=== PATIENT | female | born 1985 | race Caucasian/White ===

== ENCOUNTER 2019-11-03 13:44 | Outpatient (CLI) | payer OTHER, SELFPAY ==
--- NOTE | ~2019-11-03 | US_ITS ---
EXAMINATION: US right upper quadrant DATE: 11/03/2019 14:16 INDICATION: Elevated liver function tests TECHNIQUE: Multiple grayscale and Doppler ultrasound images of the abdomen were obtained. COMPARISON: 06/20/2016 FINDINGS: The head and and body of the pancreas are normal. The pancreatic tail is obscured by bowel gas. The liver is normal with normal echogenicity and echotexture. No surface nodularity. Normal hepa topetal flow in the main portal vein. The gallbladder is normal with no abnormal wall thickening, per icholecystic fluid or stones. The normal common bile duct measures 2 mm. There was no sonographic Mur phy sign. IMPRESSION: 1. Normal sonographic study of the gallbladder. Reviewed, dictated and finalized at location A.
== END 2019-11-03 13:45 | disposition home or self-care (01) ==
PROVIDERS: PCP Family Medicine; Visit Provider Physician Assistant
DX: R94.5 Abnormal results of liver function studies (principal)
CPT/HCPCS: 76705

== ENCOUNTER → 2020-01-04 16:16 | Outpatient (CLI) | payer OTHER, SELFPAY ==
--- NOTE | ~2020-01-04 | XR_ITS ---
EXAMINATION: XR chest 2V DATE: 01/04/2020 16:27 INDICATION: Shortness of breath TECHNIQUE: Frontal and lateral views of the chest are obtained COMPARISON: None available FINDINGS: The lungs are free of acute opacities. There is no pleural effusion or pneumothorax. The ca rdiomediastinal silhouette is normal. The visualized bones and soft tissues are unremarkable. IMPRESSION: 1. No acute cardiopulmonary abnormality. Reviewed, dictated and finalized at location A.
== END ==
PROVIDERS: Visit Provider Physician Assistant
DX: R06.00 Dyspnea, unspecified (principal)
CPT/HCPCS: 71046

== ENCOUNTER → 2020-09-04 10:27 | Outpatient (CLI) | payer OTHER, SELFPAY ==
[2020-09-04 20:24] LABS: SARS-CoV-2 RNA PCR Negative
== END ==
PROVIDERS: PCP Physician Assistant; Visit Provider Physician Assistant
DX: R68.89 Other general symptoms and signs (principal); Z20.822 Contact with and (suspected) exposure to COVID-19
CPT/HCPCS: C9803; U0003; U0005

== ENCOUNTER → 2022-11-15 11:11 | Outpatient (CLI) | payer OTHER, SELFPAY ==
--- NOTE | ~2022-11-15 | XR_ITS ---
Clinical Indication: Bronchitis PA and lateral views of the chest: Comparison: 01/04/2020 Findings: The lungs are clear, without evidence of focal consolidation or pleural effusion. Cardiome diastinal silhouette is within normal limits. Bones and soft tissues are unremarkable. Impression: Normal chest. Reviewed, dictated and finalized at [facility]. Impression: Normal chest.
== END ==
PROVIDERS: PCP Family Medicine; Visit Provider Family Medicine
DX: J40 Bronchitis, not specified as acute or chronic (principal)
CPT/HCPCS: 71046

== ENCOUNTER 2023-10-16 00:40 | Day surgery (SDC) | payer BC, SELFPAY ==
[2023-10-08 10:48] VITALS: BMI 24.2
--- NOTE | 2023-10-08 10:55 | PC.NURSE ---
Report to the Outpatient Waiting Room, entrance under the green pavilion located off [facility], at time 1000 on date 10/16/23. Planned Procedure Time: 1200. Time changes happen often and if your time is changed the preop area will call you the afternoon before. - You and your visitor will be asked to self-screen and do not enter if you have any COVID symptoms. - A mask is optional within the hospital at this time. Patients may have clear liquids (water, carbonated beverages, clear teas, apple juice) until 3 hours prior to surgery with a maximum of 20 ounces. - No food from midnight until time of surgery Take the following medications with a SIP of water the morning of surgery: NONE DO NOT STOP ANY OF YOUR OTHER PRESCRIPTION MEDICATIONS PRIOR TO SURGERY ?EXCEPT THE FOLLOWING Medications to discontinue per physician: VITAMINS Date to take last dose: 10/12/23 Please no make-up, nail [place], hairspray, perfume, deodorant, or body powder the day of surgery. No jewelry (including any body piercings) or valuables the day of surgery, leave them at home. Please take a shower or bath the night before, or the morning of, surgery with an antibacterial soap. Wear comfortable, loose fitting clothing. - Jewelry must be removed prior to entering the operating room. Rings and piercings that are not removed may be cut off. - The hospital will not accept responsibility for valuables. - Please leave all valuables, including medications, at home the day of surgery. If you are going home after surgery, a licensed trencher driver must drive you home. - NO public transportation without another adult if you receive anesthesia. - We recommend that an adult stay with you for 24 hours following discharge. - We also recommend that you do not drive, make important decision, drink alcoholic beverages, or take any drugs that were not prescribed by your health care provider for at least 24 hours after your discharge time. Follow any additional instructions given to you from your surgeon. If you or anyone in your household have experienced Covid symptoms in the past week, please notify your surgeon or the nurse liaison at the phone number below for possible testing. Telephone instructions given to PT - ERICA and asked if any additional questions and then verbalized understanding. Patient advised to call surgeon office or pre surgery nurse liaison [phone] if any additional questions.
--- NOTE | 2023-10-15 12:45 | WPDANESEPPF ---
Anes - Initial Pre Proc Eval Procedure: Operation Date: 10/16/23 12:00 Proposed Procedures p Excision of Subcutaneous Mass Left Lower Back - Polo Lizarraga MD Date/Time: 10/15/23 12:45 Surgeon: Polo Lizarraga MD Pre Op Diagnosis: left lower back mass (4x4cm) Patient Data Age: 37 Gender: F Height: 1.68 m Weight: 68.05 kg Allergies Allergy/AdvReac Type Severity Reaction Status Date / Time No Known Allergies Allergy Verified 10/16/23 10:39 Home Medications Medication Instructions Recorded Confirmed Type prenat.vits,viji,prd-itrg-jlbjg 1 tablet PO DAILY 06/14/20 10/16/23 History lisdexamfetamine 20 mg capsule 20 mg PO DAILY #30 caps 09/22/20 10/16/23 Rx (Vyvanse) certolizumab pegol 400 mg/2 mL 400 mg subcut ONCE 09/25/23 10/16/23 History (200 mg/mL x2) subcutaneous syringe kit (Cimzia) Patient hx anesthesia problems: none Family hx anesthesia problems: none Results Review: All pre-operative results and documents have been reviewed as part of the pre-operative evaluation. [facility] Past Medical History Medical History (Updated 09/26/23 @ 10:34 by Leigha Cunha [facility]) ADD (attention deficit disorder) without hyperactivity Asthma Attention deficit disorder Essential tremor GERD (gastroesophageal reflux disease) Undifferentiated inflammatory polyarthritis Surgical History Surgical History History of tonsillectomy Family History Family History Sibling Family history of bipolar disorder Mother Familial primary pulmonary hypertension Family history of type 2 diabetes mellitus Family history of heart disease in male family member before age 55 Other Family history of attention deficit hyperactivity disorder (ADHD) Social History Social History Social History: Smoking status: Never smoker Second hand tobacco smoke exposure: No Alcohol intake: current Drinks per week: 3 Alcohol use details: occasionally Substance use: never Substance use type: does not use Living arrangements: with family Occupation/Education: occupation Gender identity (if verbalized by the patient): Female Sexual Orientation (if Verbalized by the Patient): Straight or Heterosexual Spiritual care concerns: No Anes - Eval Final PreProcedure Day of Procedure 10/15/23 12:45 Patient weight: normal Heart: regular rate and rhythm Lungs: clear to auscultation and normal air movement Airway: Mallampati scale class II Neurological: alert and oriented Last oral intake: >/= 8 hours ASA classification: II Emergent: no Anesthetic plan: proceed Anesthesia type and monitoring: general GIVS and standard monitoring Results Review: All pre-operative results and documents have been reviewed as part of the pre-operative evaluation. Informed Consent: The patient's anesthetic plan and its attendant risks and benefits were discussed with the patient/family/POA. Questions were solicited and answers provided to the satisfaction of the patient/family/POA.
[2023-10-16 10:24] VITALS: BP 138/98; PULSE 70; RESP 16; TEMP 36.7; O2SAT 100
[2023-10-16] MEDS: LACTATED RINGERS 1,000 ML 30 ML IV CONT (10:35)
--- NOTE | 2023-10-16 11:53 | WPDHPUPDATE1 ---
History and Physical Update Update Date/Time: 10/16/23 11:53 History and Physical has been reviewed, including an updated exam of the patient. There are NO changes in the patient's condition. Risks, benefits, and alternatives have been discussed and questions answered. Patient agrees to proceed with procedure.
[2023-10-16] MEDS: ceFAZolin 2 GM/D5W 50 ML 2 GM/50 ML BAG IVPB (12:05)
[2023-10-16] MEDS: BUPIVACAINE/EPINEPHRINE 0.5% 30 ML VIAL INFILTRATE (12:05)
[2023-10-16 13:19] VITALS: BP 127/74; PULSE 76; RESP 14; O2SAT 100
--- NOTE | 2023-10-16 13:27 | W.PM.PROC2 ---
Procedure Note - Detailed Date of Procedure 10/16/23 Pre-op Diagnosis left lower back mass (4x4cm) Post-op Diagnosis Other (12 cm left lower back mass) Procedure Performed Excision 12 cm left lower back mass Surgeon Polo Lizarraga MD Electrical Sign Wirer Jose Eduardo Navarro, [facility] Anesthesia General (G IV S) and Local Indications Patient noticed a subcutaneous mass just to the left of her spine in the lower, lumbar region, of her back. She has had some pain associated with this. This clinically appears to be a lipoma. She is taken to surgery now for excision. Findings The mass was much longer than wide. It did appear to be a lipoma. Its length was 12 cm. It is with was at most 2.5 cm. Description of Procedure The patient was checked in the preoperative holding area. I was able to frances, with her in the prone position, the area of the subcutaneous mass on her left lower back. She was then taken to surgery where anesthesia was introduced and she was placed in the prone position. The area of the subcutaneous mass was prepped and draped. I infiltrated local in transverse orientation. I then made an incision over the area of local anesthetic. We dissected below Kelly's fascia and found the subcutaneous mass. It appeared to be a lipoma. I carefully dissected the mass from the surrounding tissues and then placing some traction on it saw that it originated deep between the facets of the spine. I dissected down to the into the mass and carefully dissected it free. As mentioned above, it was only about 2.5 cm in width. I measured the length and this was 12 cm. I checked the area for any signs of bleeding. There was none. I checked for any additional areas of a subcutaneous mass or nodule. There was none. I infiltrated additional local into the deeper portions of the wound. I then closed Kelly's fascia with interrupted 4-0 Vicryl suture. Some subcuticular 4-0 Vicryl skin suture were used to approximate the skin. Finally a running 4-0 Monocryl skin suture was placed. The wound was dressed with Exofin surgical adhesive. The patient was awakened and taken to outpatient surgery step down area in good condition. Sponge and needle counts were correct x2. Estimated Blood Loss -5 Drains No Packing No Pathology Yes (Subcutaneous mass left lower back) Complications No immediate complications Condition Stable Disposition Same day [facility] Billing Surgery - Charge Forward: Surgery Billing (Excision 12 cm subcutaneous mass (lipoma) left lower back; CPT code 00097)
[2023-10-16 13:45] VITALS: BP 133/95; PULSE 73; RESP 14
== END 2023-10-16 14:15 | disposition home or self-care (01) ==
PROVIDERS: PCP Family Medicine; Visit Provider Surgery
PROC: (CPT 21931; principal; 2023-10-16 12:00)
DX: D17.1 Benign lipomatous neoplasm of skin and subcutaneous tissue of trunk (principal); F98.8 Other specified behavioral and emotional disorders with onset usually occurring in childhood and adolescence; J45.909 Unspecified asthma, uncomplicated; G25.0 Essential tremor; K21.9 Gastro-esophageal reflux disease without esophagitis; Z98.890 Other specified postprocedural states; Z82.49 Family history of ischemic heart disease and other diseases of the circulatory system
CPT/HCPCS: 21931; 88304; J0690; J1100; J2250; J2405; J3010; J7120

== ENCOUNTER 2024-03-31 13:28 | Outpatient (CLI) | payer BC, SELFPAY ==
--- NOTE | ~2024-03-31 | XR_ITS ---
XR chest 2V Ordering provider: Rc Diamond MD History: 38 years Female with . J45.909 - Unspecified asthma, uncomplicated . Comparison: November 15, 2022 FINDINGS: MEDIASTINUM: The cardiac silhouette is not enlarged. LUNGS: No infiltrates, effusions or pneumothorax. OTHER: No free air under the diaphragm. IMPRESSION: No acute cardiopulmonary pathology. Reviewed, dictated and finalized at location A.
== END 2024-03-31 13:29 | disposition home or self-care (01) ==
LOC: MICIMG 13:29
PROVIDERS: PCP Family Medicine; Visit Provider Family Medicine
DX: J45.909 Unspecified asthma, uncomplicated (principal)
CPT/HCPCS: 71046

== ENCOUNTER 2024-05-12 09:55 | Outpatient (CLI) | payer BC, SELFPAY ==
--- NOTE | 2024-05-12 10:04 | EST_ITS ---
Patient Info Name: Salima Young Age: 38 years : 1985 Gender: Female Ht: 66 in Wt: 165 lbs BSA: 1.88 m2 HR: 70 bpm BP: 131 / 92 mmHg Exam Date: 05/12/2024 10:27 AM Exam Location: Echo Lab Patient Status: Outpatient Admit Date: 05/12/2024 Staff Ordering Physician: Edison Champagne DO Attending Provider: DR. CHAMPAGNE Exercise Technologist: Alice Maldonado [facility] Exercise Physician: Edison Champagne DO Exam Type: CA stress test treadmill Study Info Indications R07.9 - Chest pain, unspecified A treadmill exercise stress test was performed. Summary 1. 1. Negative Bridger exercise stress test for ischemic ST changes by ECG criteria. 2. 2. Good functional capacity, achieving 9.8 METs of workload. 3. 3. Appropriate HR response to exercise. 4. 4. Appropriate HR recovery at 1 minute post exercise. 5. 5. No imaging with stress testing. 6. 6. Patient informed of the above results. Protocol: Bridger Stress ECG Details Stage: REST Duration (min): 1 min : 5 sec Speed (mph): 0.0 Grade (%): 0 HR (bpm): 70 SBP (mmHg): 131 DBP (mmHg): 92 METS: --- Stage: REST Duration (min): 10 min : 14 sec Speed (mph): 0.0 Grade (%): 0 HR (bpm): 84 SBP (mmHg): 131 DBP (mmHg): 92 METS: --- Stage: STAGE 1 Duration (min): 1 min : 0 sec Speed (mph): 1.7 Grade (%): 10 HR (bpm): 102 SBP (mmHg): 131 DBP (mmHg): 92 METS: --- Stage: STAGE 1 Duration (min): 2 min : 0 sec Speed (mph): 1.7 Grade (%): 10 HR (bpm): 114 SBP (mmHg): 131 DBP (mmHg): 92 METS: --- Stage: STAGE 1 Duration (min): 3 min : 0 sec Speed (mph): 1.7 Grade (%): 10 HR (bpm): 114 SBP (mmHg): 141 DBP (mmHg): 84 METS: --- Stage: STAGE 2 Duration (min): 1 min : 0 sec Speed (mph): 2.5 Grade (%): 12 HR (bpm): 132 SBP (mmHg): 141 DBP (mmHg): 84 METS: --- Stage: STAGE 2 Duration (min): 2 min : 0 sec Speed (mph): 2.5 Grade (%): 12 HR (bpm): 138 SBP (mmHg): 155 DBP (mmHg): 85 METS: --- Stage: STAGE 2 Duration (min): 3 min : 0 sec Speed (mph): 2.5 Grade (%): 12 HR (bpm): 144 SBP (mmHg): 155 DBP (mmHg): 85 METS: --- Stage: STAGE 3 Duration (min): 1 min : 0 sec Speed (mph): 3.4 Grade (%): 14 HR (bpm): 159 SBP (mmHg): 182 DBP (mmHg): 82 METS: --- Stage: STAGE 3 Duration (min): 1 min : 30 sec Speed (mph): 3.4 Grade (%): 14 HR (bpm): 166 SBP (mmHg): 182 DBP (mmHg): 82 METS: --- Stage: RECOVERY Duration (min): 0 min : 29 sec Speed (mph): 0.0 Grade (%): 0 HR (bpm): 159 SBP (mmHg): 182 DBP (mmHg): 82 METS: --- Stage: RECOVERY Duration (min): 1 min : 29 sec Speed (mph): 0.0 Grade (%): 0 HR (bpm): 117 SBP (mmHg): 182 DBP (mmHg): 82 METS: --- Stage: RECOVERY Duration (min): 2 min : 29 sec Speed (mph): 0.0 Grade (%): 0 HR (bpm): 93 SBP (mmHg): 182 DBP (mmHg): 82 METS: --- Stage: RECOVERY Duration (min): 3 min : 4 sec Speed (mph): 0.0 Grade (%): 0 HR (bpm): 96 SBP (mmHg): 150 DBP (mmHg): 87 METS: --- Rest HR: 84 bpm Peak HR: 167 bpm Rest Sys BP: 131 mmHg Peak Sys BP: 182 mmHg Max Pred HR: 181 bpm % Max Pred HR: 92 % Target HR: 154 bpm Max RPP: 30,394 bpm*mmHg Espinoza Score: -2 Termination Reason: Reached target heart rate or workload Cardiac Symptoms: Shortness of breath Max ST Seg Deviation: -1.80 mm Total Time: 7 min : 30 sec Rest Duncan BP: 92 mmHg Peak Duncan BP: 82 mmHg Angina Score: None Total METS: 9.8 Resting ECG Sinus rhythm. Stress ECG No ST changes. Arrhythmias None. Report Signatures
== END 2024-05-12 09:56 | disposition home or self-care (01) ==
LOC: ANHCARD 09:56
PROVIDERS: PCP Family Medicine; Visit Provider Internal Medicine Cardiovascular Disease
DX: R07.9 Chest pain, unspecified (principal)
CPT/HCPCS: 93017

== ENCOUNTER 2025-04-20 14:48 | Outpatient (CLI) | payer BC, SELFPAY ==
--- OUTSIDE RECORDS SUMMARY | 2017-09-11 09:15 | XMS_ITS | Continuity of Care Document ---
Author Organization [facility] Address [address] [facility] [address] [place] [address] Phone Care Team Providers Care Digital Tech Name Role Phone Yuri Sotelo MD Unavailable Unavailable Allergies, Adverse Reactions, Alerts Substance Reaction Status Criticality No Known Allergies Active No Inform ation Medications Medication Instructions Dosage Effective Dates (start - stop) Status Comments Vyvanse 20 mg capsule take 2 capsule by oral route every day in the morning 40 MG - Active Lexapro 5 mg tablet take 1 tablet by ora l route every day 5 MG - Active Procedures Procedure Date OFFICE/OUTPATIENT VISIT [facility] Advance Directives Directive Yes / No Effective Date File Name No Information Encounters Encounter Description Practice Location Reason(s) For Visit Diagnoses Date Provider Providers Copied on Encounter [facility], [address] [place] [address], [address], tel:[phone] [facility] No Information 8 Deepak Welch. [address] [place], [place], [id number] . tel:[phone] OFFICE/OUTPAT IENT VISIT [facility], [address] [place] [address] [address], [place], [address], [place] tel:[phone] [facility] Amy Instability of left shoulder joint 8 Zachary Downey. [address], [place], [place], [id number] , [place]. tel:[phone] Referring Provider: [address], [place], [address] . tel:[phone] Family History Family Member Type Diagnosis Age At Onset Sister Problem (finding) Alive and well Payers Payer name Insurance type Covered alliance party ID Gabo jain(s) [facility] Choice/Choice Plus E2 [id number] Social History Type Description Quantity Date Captured Comments Alcohol Use Details Unknown Caffeine Use Details Unknown Tobacco Use Status No Information Smoking Status No Information Sex Female Chief Complaint And Reason For Visit No Information Reason For Referral Reason For Referral No Information Plan Of Treatment Date Type Action Status Referral Ordered: RADEX SERGIO COMPL MINIMUM 2 VIEWS LT ordered History Of Present Illness Encounter Date Complaint History Of Prese nt Illness No Information Functional Status Date Functional Assessmen t No Information Instructions Date Instruction Additional Infor mation apply heating pad or ice as tole rated Related to Instability of left shoulder joint elevate higher than your heart R elated to Instability of left shoulder joint Assessments Type Assessment Date No Information Patient Care Teams Name Effective Dates (start - stop) Status Members No Information
--- NOTE | ~2025-04-20 | MM_ITS ---
EXAMINATION: MM screening martir BI w jimena HISTORY: Screening TECHNIQUE: Craniocaudal and mediolateral oblique 3-D tomosynthesis images were obtained and synthetic 2-D images were generated. CAD analysis was submitted and interpreted. COMPARISON: Baseline BREAST PARENCHYMAL COMPOSITION: There are scattered areas of fibroglandular density. FINDINGS: There is no evidence of suspicious mass, calcification, or architectural distortion to suggest malignancy in either breast. IMPRESSION: 1. No mammographic evidence of malignancy. 2. Recommend routine screening mammography in one year. BI-RADS Category 1: Negative Reviewed, dictated and finalized at location B. MACHINE OPERATOR
--- OUTSIDE RECORDS SUMMARY | 2025-04-21 14:29 | XMS_ITS | Clinical Summary ---
Author Organization [facility] Address [address] [place] [address] Care Team Providers Care Oracle Hrms Developer Name Role Phone Keri Dorantes MD Unavailable Senia Silver MD Unavailable [phone] Senia Silver MD Primary Care Provider Source Comments [facility],non-owned Affiliates and Associated Physician Practices is amultiple site organization consisting of ambulatory clinics and hospital sitesin [place] and [place]. This disclosure is being madepursuant to the Care Everywhere program and may not contain all information available regarding this patient. Last updated 18.[facility] [employer] Allergies No known active allergies Medications * Be aware that medications may not be up to date on this document. Alwaysverify current medications with the patient. certolizumab pegol (Cimzia) injection Inject 400 (four hundred) mg subcutaneously every 28 days Active ALBUTEROL IN Inhale 90 mcg by mouth as needed Active lisdexamfetami ne (Vyvanse) 30 MG capsule Take 1 (one) capsule by mouth every morning Active MV & Min w/FA-DHA ( ADULT GUMMY/DHA/FA PO) Take 4 Pieces of gum by mouth once daily Active Family History Medical History Relation Name Comments Hypertension Brother Hypertension Father Hypertension Maternal Grandfather Congenital Heart defect Maternal Uncle CAD (Coronary Artery Disease) Mother Diabetes - Type 2 Mother Other - Pulmonary/Lung Mother pulmo nary fibrosis Down's Syndrome Other Sister in law Diabetes - Gestational Sister Diabetes - Type 2 Sister Relation Name Status Comments Brother Father Alive Maternal Grandfather Maternal Uncle Alive Mother Other Sister in law Alive Sister Social History Tobacco Use Types Packs/Day Years Used Date Smoking Tobacco: Never Smokeless Tobacco: Never Tobacco Cessation:Counseling Given: Not Answered Alcohol Use Standard Drinks/Week Comments Yes 2 (1 standard drink = 0.6 oz pur e alcohol) socially Education Answer Date Recorded What is the highest level of school you have completed or the highest degree you have received? 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 Not on file Not on file Not on fi le Last Filed Vital Signs Vital Sign Reading Time Taken Comments Blood Pressure 126/84 12/11/2022 11:01 AM CDT Pulse 80 12/11/2022 11:01 AM CDT Temperature - - Respiratory Rate - - Oxygen Saturation - - Inhaled Oxygen Concentration - - Weight 71.7 kg (158 lb) 12/11/2022 11:01 AM CDT Height 167.6 cm (5' 6) 12/11/2022 11:01 AM CDT Body Mass Index 25.5 12/11/2022 11:01 AM CDT Plan of Treatment Health Maintenance Due Date Last Done Comments LIPID TESTING 1985 MAMMOGRAM 1985 HIV SCREENING 11/15/1999 HEPATITIS C SCREENING 11/10/2002 DTAP/TDAP/TD VACCINES (1 - Tdap) 11/15/2003 HEPATITIS B VACCINE (1 of 3 - 19+ 3-dose series) 11/15/2003 HPV VACCINE (1 - 3-dose SCDM series) 11/15/2011 DEPRESSION SCREENING 06/16/2024 COVID-19 VACCINE (4 - 2024-2 6 season) 2025 04/08/2022, 05/15/2021, 08/24/2020 INFLUENZA VACCINE (#1) 2025 , 03/11/2020, 03/09/2019 PAP SMEAR 07/12/2025 07/12/2022, 07/12/2022, 07/12/2022 (Done Outside Per Report) ZOSTER VACCINE (1 of 2) 2034 HIB VACCINE Aged Out No longer eligi ble based on patient's age to complete this topic MENINGOCOCCAL (Group B) VACCINE SHARED DECISION-MAKING Aged Out No longer eligible based on patient's age to complete this topic MENINGOCOCCAL GROUPS A/C/Y/W VACCINE Aged Out No longer eligible based on patient's age to complete this topic PNEUMOCOCCAL VACCINE Aged Out No long er eligible based on patient's age to complete this topic Insurance * Guarantor: ERICA YOUNG Account Type Relation to Patient Date of Phone Billing Address Personal/Family [address] [place] [address] SELF PAY NO INSURANCE Member Subscriber Plan / Payer (Ef fective for All Dates) Name:Erica Young Member ID:Not on file Relation to Subscriber:Not on file Name:ERICA OYUNG Subscriber ID:Not on file Address: [address] [place] [address] Payer ID:Not on file Group ID:Not on file Type:Self Pay Address: [place], [place] * Guarantor: REICA YOUNG Account Type Relation to Patient Date of Phone Billing Address Personal/Family [address] [place] [address] SELF PAY NO INSURANCE Member Subscriber Plan / Payer (Ef fective for All Dates) Name:Erica Young Member ID:Not on file Relation to Subscriber:Not on file Name:ERICA YOUNG Subscriber ID:Not on file Address: [address] [place] [address] Payer ID:Not on file Group ID:Not on file Type:Self Pay Address: [place], [place] * Guarantor: ERICA YOUNG Account Type Relation to Patient Date of Phone Billing Address Personal/Family [address] [place] [address] SELF PAY NO INSURANCE Member Subscriber Plan / Payer (Ef fective for All Dates) Name:Erica Young Member ID:Not on file Relation to Subscriber:Not on file Name:ERICA YOUNG Subscriber ID:Not on file Address: [address] [place] [address] Payer ID:Not on file Group ID:Not on file Type:Self Pay Address: [facility] [place] Care Teams Oracle Hrms Developer Relationship Specialty Start Date End Date Senia Silver MD [address] [place] [address] PCP - General Family Medicine 12/11/22 Keri Dorantes MD Referring Physician Obstetrics and Gynecology 12/10/22 Senia Silver MD [address] [place] [id number] Primary Care Provider Family Medicine 12/10/22
--- OUTSIDE RECORDS SUMMARY | 2025-04-21 14:29 | XMS_ITS | Clinical Summary ---
Author Organization [facility] Address [address] [place] [address] Phone Care Team Providers Care Corporate Manager Name Role Phone Chetan SENA MD, Benoit Jackson Primary Care Provider [phone] Allergies No known active allergies Medications albuterol HFA 90 mcg inhaler Take by inhalation. Active cholecalciferol , vitamin D3, 5,000 unit Take 5,000 Units by mouth. Active Cyanocobalamin (VITAMIN B-12) 1,000 mcg Tablet, Sublingual Take 5,000 mcg by mouth. Active lisdexamfetamin e (VYVANSE) 30 mg capsule Take 30 mg by mouth. Active nitrofurantoin (MACROBID) 100 mg capsule Take one tablet after intercourse for UTI prophylaxis. Active triamcinolone acetonide (KENALOG) 0.1 % Ointment Apply to affected area. Active raNITIdine (ZANTAC) 150 mg tablet Take 150 mg by mouth. Active pantoprazole (PROTONIX) 20 mg Tablet, Delayed Release (E.C.) Take 20 mg by mouth. Active Active Problems No known active problems Social History Tobacco Use Types Packs/Day Years Used Date Smoking Tobacco: Never Comments Unknown Sex and Gender Information Value Date Recorded Sex Assigned at Not on file Legal Sex Female 11:23 AM CDT Gender Identity Not on file Sexual Orientation Not on file Last Filed Vital Signs Vital Sign Reading Time Taken Comments Blood Pressure - - Pulse - - Temperature - - Respiratory Rate - - Oxygen Saturation - - Inhaled Oxygen Concentration - - Weight 62.1 kg (137 lb) 10/08/2018 8:26 AM CDT Height 167.6 cm (5' 6) 09/11/2018 1:52 PM CDT Body Mass Index 22.11 09/11/2018 1:52 PM CDT Plan of Treatment Health Maintenance Due Date Last Done Comments DTAP/TDAP/TD VACCINES (1 - Tdap) 11/15/2003 HEPATITIS B VACCINES (1 of 3 - 19+ 3-dose series) 06/2003 HPV/Cotest (21-29) 2005 HPV VACCINES (1 - 3-dose SCDM series) 11/15/2011 CERVICAL CANCER SCREENING 2014 HPV/Cotest (30-65) 2014 PAP SMEAR 2014 BREAST CANCER SCREENING 2024 INFLUENZA VACCINE (#1) 2025 Insurance [facility] [employer] PPO [id number] [facility] Address: [facility] [id number] [place] [address] Care Teams Corporate Manager Relationship Specialty Start Date End Date Benoit Benton III, MD [address] [place] [address] PCP - General Rheumatology 09/11/18
--- OUTSIDE RECORDS SUMMARY | 2025-04-21 14:29 | XMS_ITS | Data Portability ---
Author Organization [facility]/[employer]/[facility] (11) Address [address] [place] [address] Care Team Providers Care Public Events Facilities Rental Manager Name Role Phone BE HURTADO Referring Provider [phone] Assessment No assessment recorded. Plan of Treatment Reminders Order Date Submit Date Provider Last Modified By Organization Details Last Modified Time Details Appointments None record ed. Lab None record ed. Referral None record ed. Procedures None record ed. Surgeries None record ed. Imaging None record ed. Medication Orders None record ed. Patient TargetsNo targets recorded. Patient InstructionsNo instructions recorded. Reason for Referral None Reported. Procedures Surgical History Date Name Laterality Status Provider Name and Address Organization Details Recorded Time 02/04/2018 Sleep Study completed Be Hurtado MD, F.C.C.P. [address] [place] [address], [place], [address], [facility] [employer] 02/05/2018 18:33:12 Imaging Results None recorded. Procedure Notes None recorded. Medical Equipment None Reported. Medications Name Sig Start Date Stop Date Status Note LastModified by Organization Details LastModified Time prednisone 10 mg tablet active Not Available Not Available No t Available pantoprazole 40 mg tablet,delayed release active Not Available Not Available Not Available hydrocodone 10 mg-chlorphenir amine 8 mg/5 mL oral susp extend.rel 12hr active Not Available Not Available Not Available propranolol 20 mg tablet active Not Available Not Available No t Available amoxicillin 875 mg-potassium clavulanate 125 mg tablet active Not Available Not Availabl e Not Available escitalopram 10 mg tablet active Not Available Not Available Not Available escitalopram 5 mg tablet active Not Available Not Available No t Available Flovent HFA 220 mcg/actuation aerosol inhaler active Not Available Not Available Not Available Vyvanse 20 mg capsule active Not Available Not Available Not Available Dulera 200 mcg-5 mcg/actuation HFA aerosol inhaler active Not Available Not Available Not Available Mary Grace 1/20 (21) 1 mg-20 mcg tablet active Not Available Not Available N ot Available Mary Grace 1.5/30 (21) 1.5 mg-30 mcg tablet active Not Available Not Available N ot Available Arnuity Ellipta 200 mcg/actuation powder for inhalation active Not Available Not Available N ot Available Vitals Date Recorded Body height Body mass index (BMI) Body weight Provider Name and Address Organization Details Last Updated DateTime 02/04/2018 167.64 cm 21.3 kg/m2 67785.19 g Elia Vogt [place] - [facility] 02/04/2018 17:07:22 Social History None recorded. Functional Status None recorded. Mental Status None recorded. Family History Nothing Reported. Medical History No medical history recorded. Gynecological HistoryNo gynecological history recorded. Obstetrics History GPAL:G 0 P 0 0 0 0 Past Encounters Encounter ID Performer Location Encounter Start Date Encounter Closed Date Diagnosis/Indication Diagnosis SNOMED-CT Code Diagnosis ICD10 Code Diagnosis IMO Codes Diagnosis Note [id number] [place], [facility] (90) [address] [facility] [address] [place] [address] 02/04/2018 16:25:45 02/05/2018 13:46:34 Obstructive sleep apnea of adult 1271738459 103 G47.33 Health Concerns Section Related Observation LastModified by Organization Detai ls LastModified Time None Recorded Concern Status LastModified by Organization Details LastModified Time None Recorded Advance Directives Directive None Recorded Payers Insurance Date Sequence Insurance Name Policy Number Policy Schwarz Covered Member ID Schwarz Member ID Guarantor Name 02/10/2018 1 [facility] [id number] Salima Young [id number] Salima Young Notes Date Note Type Note Provider Name and Address Organization Details Recorded Time 8 text/html HST SetupReported by PatientEquipment InstructionsFor hst set up, patient reportsdemonstrated to patient how to set up home sleep test device. the patient was able to return demonstration with out difficulty.,the patient is returning the device the following morning., andthe patient is wearing hst with oral appliance.. Be Hurtado MD, F.C.C.P. [address] [address], [place], [address], [facility] 02/05/2018 18:33:15 OBGyn Episode No OBEpisode recorded.
--- OUTSIDE RECORDS SUMMARY | 2025-04-21 14:29 | XMS_ITS | Encounter Summary ---
Author Organization [facility] Address [address] [place] [address] Phone Care Team Providers Care Television Analyzer Name Role Phone Miscellaneous, Not In File Unavailable Unava ilable Lexie Holcomb MD Primary Care Provider Chetan SENA MD, John JSusan Unavailable [phone] Kami Talley MD Primary Care Provider [phone] Lexie Holcomb MD Primary Care Provider Senia Silver MD Primary Care Provider + Orion Ortega MD Unavailable [phone] Rc Diamond MD Primary Care Provider [phone] Encounter Details Date Type Department Care Team (Late st Contact Info) Description 09/05/2017 Orders Only [facility] ProviderAlexandre MD [address] [place] [id number] Social History Tobacco Use Types Packs/Day Years Used Date Smoking Tobacco: Never Assessed Comments Unknown Sex and Gender Information Value Date Recorded Sex Assigned at Not on file Legal Sex Female 11:16 AM [employer] Gender Identity Female 01/22/2021 1:07 PM CDT Sexual Orientation Straight 01/22/2021 1: 07 PM CDT documented as of this encounter Functional Status documented as of this encounter Plan of Treatment Not on file documented as of this encounter Procedures Procedure Name Priority Date/Time Associated Diagnosis Comments DISCHARGE LABORATORY CUMULATIVE REPORT 09/05/2017 12:00 AM CDT documented in this encounter Results * DISCHARGE LABORATORY CUMULATIVE REPORT (09/05/2017 12:00 AM CDT) Narrative 09/05/2017 12:00 AM CDT Ordered by an unspecified provider. us Historical Provider LAB BLOOD ORDERABLES Kate l Result documented in this encounter Visit Diagnoses Not on filedocumented in this encounter Care Teams Television Analyzer Relationship Specialty Start Date End Date Lexie Holcomb MD [address] [facility] [address] [facility] [address] [place] [address] PCP - General 04/05/17 02/15/19 Kami Talley MD [address] [place] [address] [address] [facility] [address] [place] [address] PCP - General Family Medicine 02/16/19 08/01/19 Lexie Holcomb MD [address] [place] [address] [address] [facility] [address] [place] [address] PCP - General Family Medicine 08/02/19 11/07/21 Senia Silver MD [address] [place] [address] [facility] [address] [place] [address] PCP - General Family Medicine 11/08/21 05/02/24 Rc Diamond MD [address] [facility] [address] [facility] [address] [place] [address] PCP - General Family Practice 05/03/24 Miscellaneous, Not In File 10/16/16 9 Benoit Benton III, MD [address] [place] [address] Consulting Physician Rheumatology 08/04/17 02/15/19 Orion Ortega MD [address] [place] [address] Consulting Physician Rheumatology 10/27/23 documented as of this encounter
--- OUTSIDE RECORDS SUMMARY | 2025-04-21 14:29 | XMS_ITS | Clinical Summary ---
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 Active Flovent HFA 110 mcg/actuation inhaler 02/19/2021 Active certolizumab pegol (Cimzia) 400 mg (200 mg x 2) kit INJECT 2 SYRINGES UNDER THE SKIN EVERY 4 WEEKS 2 each 2 10/25/2024 Active metFORMIN (GLUCOPHAGE) 500 mg tablet Take 1 tablet (500 mg total) by mouth daily 12/20/2024 Active Active Problems Problem Noted Date Diagnosed Date Pain of left hip 10/27/2023 Assessment & Plan (10/27/2023 4:39 PM CDT): Has episodic sharp pains affecting the left hip/groin upon standing after sitting for prolonged periods. Symptoms lasts for few seconds and resolve. Her symptoms discussed above along with history of hypermobility, raise concern for possible labral tear. Recommended x-ray and PT, if symptoms persist. If symptoms do not improve, would consider an MRI at that point. Hypercalcemia 02/22/2022 Assessment & Plan (10/27/2023 4:37 PM CDT): Previous labs showed mild hypercalcemia along with elevations in ionized calcium. Has been following with PCP. Will recheck calcium, ionized calcium, and PTH. Continue to monitor with PCP. Assessment & Plan (05/27/2022 10:22 AM MAGNET PLACER): Prior labs have shown mild hypercalcemia along with mild elevations in ionized calcium. Will recheck labs today. Have recommended further discussion with PCP. Assessment & Plan (02/22/2022 4:11 PM CDT): Previous labs display mild hypercalcemia. Will check ionized calcium. Rash 07/06/2021 Assessment & Plan (07/06/2021 9:37 AM MAGNET PLACER): Slightly raised plaques with scale and ill-defined borders over the bilateral arms (L>R) primarily over the flexor. Appears exam it is. Recommended OTC hydrocortisone cream and further evaluation with Dermatology. Follow-up 4 weeks. Sooner if needed. Seen with Dr. Benton. care following vaginal delivery 03/09 Overview (03/11/2021): # ID: Afebrile. No signs/symptoms of infection. #PPROM @ 29w5d: no signs of chorioamnionitis. s/p latency abx w/ amp/azithro x 48hrs => amox/azithro x 5 days (02/28-03/06, 7 day course) #HSV: s/p suppression and negative BLE x 2 since admission #COVID-19: Preadmission testing negative # Heme: EBL 400mL. No symptoms acute blood loss anemia. # CV/Pulm: Vital signs stable, within normal limits. # GI/: Tolerating PO. Voiding spontaneously. # Pain: Controlled with above regimen. # Hx essential tremor: on no meds # Hx of ADHD: on no meds # Psoriatic arthritis: Not currently on any meds, has previously been on sulfasalazine and humira. Asymptomatic. Followed by rheum. # Post DVT prophylaxis: The patient has the following MAJOR risk factors prolonged labor OR antepartum admission >72h immediately prior to delivery and the following MINOR risk factors age >/= 35. enoxaparin 40 mg daily ordered for VTE prophylaxis. # MOC: Condoms and withdrawal method # MOF: Both formula and # COVID Vaccination Status: Previously received # Disposition: Follow up task not sent. Continue routine care. Plan for discharge to home today. Supervision of other normal , antepartu m 09/26/2020 Overview (02/20/2021): -AMA -Hx of ADHD: No meds currently. -Hx of Essential tremors: No meds currently. -Hx of HSV: Needs suppression. -Hep C Ab needed in 3rd tri labs [x] Labs: Labs: Lab Results Component Value Date ABORH O Positive 10/02/2020 IDCOOMB Negative 10/02/2020 [id number] Nonreactive 10/02/2020 LABRPR Nonreactive 10/02/2020 RUBELIGG Reactive 10/02/2020 HEPBSAG Nonreactive 10/02/2020 [x] Genetic Screening: nml cfDNA (FOB sibling h/o Tri 21), nml invitae [x] Baby ASA: yes @ 12wks [x] 1hr GCT at 24-28wks: nml, 136 [x] Tdap (27-36wks): 02/20/2021 TH [] Flu Shot: [] Rhogam (if Rh neg): n/a O+ [] GBS at 36 wks: [x] [] control method: [] 39 weeks discussion of IOL vs. Expectant management: [] Mode of delivery: [] For C/S bottle of CHG 4% and hand out provided @ 36wks Boy, NO circ, , undecided on peds Teaching: [x] 1st visit [x] 28-30 week [] 36 week Elevated liver enzymes 12/21/2019 Assessment & Plan (12/21/2019 11:22 AM CDT): Liver US 11/2019: WNL May need further evaluation with hepatology, although should discuss further with pcp. Acrocyanosis 08/05/2018 Assessment & Plan (08/05/2018 3:36 PM MAGNET PLACER): Purple discoloration of the toes in the cold, which is present on exam today. Advised to keep feet warm with socks and shoes. Encounter for long-term (current) use of medicat ions 08/05/2018 Assessment & Plan (02/03/2025 10:22 AM CDT): Routine labs today. Side effects to Plaquenil (confusion, dizziness, vision changes) No plans for pregnancies, on bc, although will defer mtx and arava due to child bearing age Elevated lfts with ssz, humira Assessment & Plan (10/25/2024 8:53 AM CDT): Routine labs today. Side effects to Plaquenil (confusion, dizziness, vision changes) No plans for pregnancies, on bc, although will defer mtx and arava due to child bearing age Elevated lfts with ssz, humira Assessment & Plan (07/26/2024 9:10 AM MAGNET PLACER): Routine labs today. Side effects to Plaquenil (confusion, dizziness, vision changes) No plans for pregnancies, on bc, although will defer mtx and arava due to child bearing age Elevated lfts with ssz, humira Assessment & Plan (05/03/2024 9:10 AM MAGNET PLACER): Routine labs today. Side effects to Plaquenil (confusion, dizziness, vision changes) No plans for pregnancies, on bc, although will defer mtx and arava due to child bearing age Elevated lfts with ssz, humira Assessment & Plan (02/02/2024 10:17 AM CDT): Routine labs today. Side effects to Plaquenil (confusion, dizziness, vision changes) No plans for pregnancies, on bc, although will defer mtx and arava due to child bearing age Elevated lfts with ssz, humira Assessment & Plan (10/27/2023 4:37 PM CDT): Routine labs today. Side effects to Plaquenil (confusion, dizziness, vision changes) No plans for pregnancies, on bc, although will defer mtx and arava due to child bearing age Elevated lfts with ssz, humira Assessment & Plan (07/28/2023 4:28 PM MAGNET PLACER): Routine labs today. Side effects to Plaquenil (confusion, dizziness, vision changes) No plans for pregnancies, on bc, although will defer mtx and arava due to child bearing age Elevated lfts with ssz, humira Assessment & Plan (03/12/2023 3:53 PM CDT): Routine labs today. Side effects to Plaquenil (confusion, dizziness, vision changes) No plans for pregnancies, on bc, although will defer mtx and arava due to child bearing age Elevated lfts with ssz, humira Assessment & Plan (12/10/2022 3:53 PM CDT): Routine labs today. Side effects to Plaquenil (confusion, dizziness, vision changes) No plans for pregnancies, on bc, although will defer mtx and arava due to child bearing age Elevated lfts with ssz, humira Assessment & Plan (09/09/2022 4:18 PM CDT): Routine labs today. Side effects to Plaquenil (confusion, dizziness, vision changes) No plans for pregnancies, on bc, although will defer mtx and arava due to child bearing age Elevated lfts with ssz, humira Assessment & Plan (05/27/2022 10:22 AM MAGNET PLACER): Routine labs today. Side effects to Plaquenil (confusion, dizziness, vision changes) No plans for pregnancies, on bc, although will defer mtx and arava due to child bearing age Elevated lfts with ssz, humira Assessment & Plan (02/22/2022 4:11 PM CDT): Routine labs today. Side effects to Plaquenil (confusion, dizziness, vision changes) No plans for pregnancies, on bc, although will defer mtx and arava due to child bearing age Elevated lfts with ssz, humira Assessment & Plan (01/11/2022 3:13 PM CDT): Routine labs today. Side effects to Plaquenil (confusion, dizziness, vision changes) No plans for pregnancies, on bc, although will defer mtx and arava due to child bearing age Elevated lfts with ssz, humira Assessment & Plan (11/08/2021 4:10 PM CDT): Routine labs today. Side effects to Plaquenil (confusion, dizziness, vision changes) No plans for pregnancies, on bc, although will defer mtx and arava due to child bearing age Elevated lfts with ssz, humira Assessment & Plan (08/07/2021 9:14 AM MAGNET PLACER): Routine labs today. Side effects to Plaquenil (confusion, dizziness, vision changes) No plans for pregnancies, on bc, although will defer mtx and arava due to child bearing age Elevated lfts with ssz, humira Assessment & Plan (07/06/2021 9:37 AM MAGNET PLACER): Routine labs today. Side effects to Plaquenil (confusion, dizziness, vision changes) No plans for pregnancies, on bc, although will defer mtx and arava due to child bearing age Elevated lfts with ssz, humira Given her concerns with milk production and weight gain, will check thyroid studies. Assessment & Plan (06/12/2021 12:34 PM MAGNET PLACER): Routine labs today. Side effects to Plaquenil (confusion, dizziness, vision changes) No plans for pregnancies, on bc, although will defer mtx and arava due to child bearing age Elevated lfts with ssz, humira Given her concerns with milk production and weight gain, will check thyroid studies. Assessment & Plan (04/17/2021 4:41 PM CDT): Routine labs today. Side effects to Plaquenil (confusion, dizziness, vision changes) No plans for pregnancies, on bc, although will defer mtx and arava due to child bearing age Elevated lfts with ssz, humira Assessment & Plan (01/30/2021 3:46 PM CDT): Routine labs today. Side effects to Plaquenil (confusion, dizziness, vision changes) No plans for pregnancies, on bc, although will defer mtx and arava due to child bearing age Elevated lfts with ssz, humira Assessment & Plan (10/25/2020 3:55 PM CDT): Routine labs today. Side effects to Plaquenil (confusion, dizziness, vision changes) No plans for pregnancies, on bc, although will defer mtx and arava due to child bearing age Elevated lfts with ssz, humira Assessment & Plan (04/21/2020 10:35 AM MAGNET PLACER): Routine labs today. Side effects to Plaquenil (confusion, dizziness, vision changes) No plans for pregnancies, on bc, although will defer mtx and arava due to child bearing age Elevated lfts with ssz, humira Assessment & Plan (03/15/2020 12:52 PM CDT): Routine labs today. Side effects to Plaquenil (confusion, dizziness, vision changes) No plans for pregnancies, on bc, although will defer mtx and arava due to child bearing age Elevated lfts with ssz, humira Assessment & Plan (01/12/2020 10:21 AM CDT): Routine labs today. Side effects to Plaquenil (confusion, dizziness, vision changes) No plans for pregnancies, on bc, although will defer mtx and arava due to child bearing age Elevated lfts with ssz, humira Assessment & Plan (12/21/2019 11:23 AM CDT): Routine labs today. Side effects to Plaquenil (confusion, dizziness, vision changes) No plans for pregnancies, on bc, although will defer mtx and arava due to child bearing age Elevated lfts with ssz, humira Assessment & Plan (11/10/2019 12:52 PM CDT): Routine labs today. Side effects to Plaquenil (confusion, dizziness, vision changes) No plans for pregnancies, on bc, although will defer mtx and arava due to child bearing age Elevated lfts with ssz Assessment & Plan (09/29/2019 10:15 AM CDT): Routine labs today. Side effects to Plaquenil (confusion, dizziness, vision changes) No plans for pregnancies, on bc, although will defer mtx and arava due to child bearing age Elevated lfts with ssz Assessment & Plan (07/29/2019 10:08 AM MAGNET PLACER): Routine labs today. Side effects to Plaquenil (confusion, dizziness, vision changes) No plans for pregnancies, on bc, although will defer mtx and arava due to child bearing age Assessment & Plan (04/28/2019 1:23 PM MAGNET PLACER): Routine labs today. Side effects to Plaquenil (confusion, dizziness, vision changes) No plans for pregnancies, on bc, although will defer mtx and arava due to child bearing age Assessment & Plan (03/25/2019 9:27 AM CDT): Routine labs today. Side effects to Plaquenil (confusion, dizziness, vision changes) No plans for pregnancies, on bc, although will defer mtx and arava due to child bearing age Assessment & Plan (02/23/2019 9:13 AM CDT): Routine labs today. Side effects to Plaquenil (confusion, dizziness, vision changes) No plans for pregnancies, on bc, although will defer mtx and arava due to child bearing age Assessment & Plan (09/23/2018 3:36 PM CDT): Routine labs today. Side effects to Plaquenil (confusion, dizziness, vision changes) Assessment & Plan (08/25/2018 4:26 PM CDT): Routine labs today. Side effects to Plaquenil (confusion, dizziness, vision changes) Assessment & Plan (08/05/2018 3:37 PM MAGNET PLACER): Routine labs today, including Avise. Chronic pain of right knee 07/03/2018 Assessment & Plan (02/03/2025 10:22 AM CDT): MRI 08/20/2018: Right knee: Full-thickness chondral fissuring with small region of laminatino at the Bone chondral interface at the lateral patellar facet. Salima was previously following with Dr. Omari Reyna, orthopedics, for right knee pain was diagnosed with patellofemoral syndrome in 2019. At that time, she received Monovisc injections, which did offer significant benefit. Has recently noted some increased discomfort, which is worsened with ambulating stairs and squatting. Will refer back to Orthopedics for evaluation and potential repeat injections. Assessment & Plan (09/23/2018 3:36 PM CDT): MRI 08/20/2018: Right knee: Full-thickness chondral fissuring with small region of laminatino at the Bone chondral interface at the lateral patellar facet. Is following with Dr. Reyna, orthopedics. Is scheduled for Rt knee ?monovisc? Injection tomorrow. Assessment & Plan (08/25/2018 4:25 PM CDT): MRI 08/20/2018: Right knee: Full-thickness chondral fissuring with small region of laminatino at the Bone chondral interface at the lateral patellar facet. Will send to orthopedics, Dr. Reyna, for further evaluation and management of this. Assessment & Plan (08/05/2018 3:35 PM MAGNET PLACER): Significantly complaints continue to be a primary complaint. Feels that right knee catches at times. It had mild improvement with PT, although symptoms have returned. Recent right knee x-ray displayed mild osteoarthritis. Will further evaluate with right knee MRI without contrast. Assessment & Plan (07/03/2018 5:02 PM MAGNET PLACER): Significant knee complaints, which can cause her to catch and fall at times. Mild improvement with PT, although symptoms have returned. Will obtain bilateral knee xr. Depending on findings, consider MRI for further evaluation. Essential tremor 01/02/2018 Assessment & Plan (07/03/2018 5:05 PM MAGNET PLACER): Following with neurology. Improved with primidone. Assessment & Plan (01/02/2018 1:44 PM CDT): On propranolol at this time. Advised to see neurology, as was discussed with her by Dr. Holcomb, PCP. Psoriatic arthritis 09/05/2017 Overview (04/19/2020): Repeat avise 07/2018: Positive pspt, but otherwise negative avise RUQ US 11/2019: wnl Low positive lucy by lizz. Neg hep 2. US: moderate synovitis 3rd pip, but no other abnormal findings. Continues to have some sicca symptoms, questionable photosensitivity, and oral ulcers. No other clinical evidence of autoimmune disease or other connective tissue disease at this time. Based on recent radiographs, serologies, and hand US, it doesn't appear that patient's joint complaints are due to an autoimmune inflammatory process. Although given the low positive LUCY by Lizz, this may be a sign of an early developing inflammatory or connective tissue disease. For this reason, will continue to monitor for new symptoms. Mother: Psoriasis, PsA; pulmonary fibrosis US R foot 07/27/2018: 1) Synovitis with effusions of the ankles, 2nd and 3rd MTP. These findings may be seen in with inflammatory arthritis and will have to be correlated clinically. Right hand/wrist ultrasound 03/16/2020: Moderate 2nd PIP and marked 3rd PIP synovial thickening. Compared to prior hand ultrasound, the PIPs have more synovial thickening X-ray 09/18/2017: Bilateral hands: Negative SI joints: Negative X-ray 07/30/2018: Left knee: WNL Right knee: Mild OA No plans for future children. On BC. HCQ confusion, dizziness, vision changes' Defer mtx, arava child-bearing age Elevated lfts with ssz Elevated lfts with humira Gerd on celebrex with protonix Assessment & Plan (02/03/2025 10:18 AM CDT): CDAI 4. Overall, Salima has continued do fairly well since last visit from peripheral joint standpoint. Has had recent right knee discomfort with noninflammatory symptoms. Denies prolonged a.m. stiffness. Remains low disease activity per CDAI. Will continue Cimzia q.4 weeks subcutaneous injections, although will need to look into obtaining samples, as her co-pay assistance card has been out for the year. Otherwise, we can look into Cimzia in office injections to see if this can be more affordable. Routine labs today. Follow-up 3 months. Sooner if needed. Assessment & Plan (10/25/2024 8:53 AM CDT): CDAI 6. Salima had done fairly well since last visit. With that said, she was on prednisone for past 6 weeks per OBGYN. Stop prednisone last week and had noted increased discomfort throughout the joints of the hands, feet, and lesser degree in the lower back upon stopping prednisone. Symptoms are gradually improving and fairly mild at today's visit. Few tender joints without obvious synovitis. Will continue Cimzia q.4 weeks subcutaneous injections and monitor symptoms. Routine labs today. Follow-up 3 months. Sooner if needed. Assessment & Plan (07/26/2024 9:10 AM MAGNET PLACER): CDAI 3. Overall, psoriatic arthritis has remained well managed since last visit with minimal complaints. Denies prolonged a.m. stiffness. No obvious synovitis on exam today. In clinical remission per CDAI. Will continue Cimzia q.4 weeks subcutaneous injections. Routine labs today. Follow-up 3 months. Sooner if needed. Seen with Dr. Ortega. Assessment & Plan (05/03/2024 9:11 AM MAGNET PLACER): CDAI 4. Overall, psoriatic arthritis has remained fairly well managed. No significant joint flares. Denies prolonged a.m. stiffness. Low disease activity per CDAI. Very well managed on current treatment regimen. Will continue Cimzia q.4 weeks subcutaneous injections. Routine labs today. Follow-up 3 months. Sooner if needed. Is currently undergoing process of IVF. Discussed safety of Cimzia with . Assessment & Plan (02/02/2024 10:10 AM CDT): CDAI 6. Joints have done fairly well since last visit with some increased stiffness in the hands and right elbow since last visit. She attributes this to taking Cimzia every 5-6 weeks, as opposed to prescribe q.4 weeks dosing. Has minimal swelling and tenderness on exam. Symptoms remain much improved with Cimzia. Will continue Cimzia and resume at the prescribed q.4 weeks dosing interval. Routine labs today. Follow-up 3 months. Sooner if needed. Assessment & Plan (10/27/2023 4:36 PM CDT): CDAI 3. Joints have continued to do fairly well since last visit with no significant peripheral joint pain. Continues to note significant improvement since beginning Cimzia. Minimal synovitis on exam. Does appear well managed. Will continue CMC q.4 weeks subcutaneous injections. Routine labs today. Follow-up 3 months. Sooner if needed. Assessment & Plan (07/28/2023 4:28 PM MAGNET PLACER): CDAI 5. Salima has continued to do fairly well overall. Has noted slight increased discomfort in the hands and feet, which she attributes to less frequent Cimzia dosing and increased stress with job transition. Overall, she does feel well managed on current treatment regimen. Minimal swelling on exam. Do feel that she remains well controlled. Will continue Cimzia q.4 weeks subcutaneous injections. Will obtain approval with her new insurance plan. Routine labs today. Follow-up 3 months. Sooner if needed. Assessment & Plan (03/12/2023 3:53 PM CDT): CDAI 5. Since last visit, Salima has continued to do very well since last visit with no significant joint pain and/or prolonged a.m. stiffness. Minimal synovitis on exam. Continues to appear well managed on current treatment regimen. Will continue Cimzia q.4 weeks subcutaneous injections. It is noted that she is going to have a temporary insurance for April and May and then will have a new insurance starting June of 2023. For this reason, I did give her two Cimzia samples until she transitions to new insurance plan. Routine labs today. Follow-up 3 months. Sooner if needed. Assessment & Plan (12/10/2022 3:52 PM CDT): CDAI 2. Joints continue to do very well at this time on current treatment regimen. Remains in clinical remission per CDAI. Will continue Cimzia q.4 weeks subcutaneous injections. Routine labs today. Follow-up 3 months. Sooner if needed. Assessment & Plan (09/09/2022 4:18 PM CDT): CDAI 2. Joints doing very well at this time with minimal complaints. No obvious synovitis on exam today. In clinical remission per CDAI. Will continue Cimzia q.4 weeks subcutaneous injections. Routine labs today. Follow-up 3 months. Sooner if needed Assessment & Plan (05/27/2022 10:22 AM MAGNET PLACER): CDAI 1. Overall, doing very well at this time. In remission per CDAI. Will continue Cimzia Q 4 weeks subcutaneous injections. Routine labs today. Follow-up 3 months. Sooner if needed Assessment & Plan (02/22/2022 4:11 PM CDT): CDAI 4. Overall, joints are doing very well at this time with minimal complaints. Minimal swelling on exam, as above. Low disease activity per CDAI. Will continue Cimzia q.4 weeks subcutaneous injections. Routine labs today. Follow-up 3 months. Sooner if needed. Assessment & Plan (01/11/2022 3:13 PM CDT): CDAI 12. Since last visit, Salima has resumed Cimzia and tolerated this well. Denies major change in symptoms. Continues to have chronic joint complaints the hands, feet, lower back with a recent flare/exacerbation of symptoms 2 weeks prior. Do suspect her joint hypermobility is contributing to her chronic pain complaints. Will allow Cimzia more time to take effect. Will continue Cimzia q.4 weeks subcutaneous injections. Routine labs today. Follow-up 6 weeks. Sooner if needed. Assessment & Plan (11/08/2021 4:10 PM CDT): CDAI 10. Salima has been off Cimzia for several months due to pharmacy refill issue. Since being off the medication, as noted increased discomfort in the hands, feet, knees. Has few swollen and tender joints, as above. Do suspect her hypermobility is contributing to some of her chronic joint complaints. Will resume Cimzia q.4 weeks subcutaneous injections at this time. Routine labs today. Follow-up 2 months. Sooner if needed. Assessment & Plan (08/07/2021 9:13 AM MAGNET PLACER): CDAI 9. Since last visit, has remained on cimzia monthly injections. Has noted improvement in joint symptoms and fatigue. Does have some residual discomfort in the bilateral knees, which I suspect her hypermobility is likely contributing. Minimal peripheral joint complaints. Minimal synovitis on exam. Appears fairly well controlled. Will continue Cimzia q.4 weeks subcutaneous injections. Routine labs today. Follow-up 3 months. Sooner if needed. Assessment & Plan (07/06/2021 9:37 AM MAGNET PLACER): CDAI 15. Has begun Cimzia x4 weeks. Denies major change in symptoms. Has some persistent joint pain in the bilateral hands/wrists. Synovitis persists exam. Will allow medication more time to take effect. Continue Cimzia q.4 weeks subcutaneous injections. Routine labs today. Assessment & Plan (06/12/2021 12:32 PM MAGNET PLACER): CDAI 16. Salima has received Cimzia, has not begun, as wanted to discuss potential side effects further. We did discuss that Cimzia is safe to be used during , although there is no studies to assess milk production. After further discussion, she was willing to proceed with Cimzia at this time. She received her 1st Cimzia injection, in office, today without any adverse effects. Will continue Cimzia q.4 weeks subcutaneous injections. Routine labs today. Follow-up 6 weeks. Sooner if needed. Assessment & Plan (04/17/2021 4:41 PM CDT): CDAI 18. Salima is now 5 and half weeks . She notes that approximately 2 weeks she developed some increased joint pain in the bilateral hands with reduced senior enterprise architect strength along with increased fatigue symptoms. Synovitis is present on exam. Does not appear adequately controlled on exam. Will defer Otezla at this time due to current and risks unknown. For this reason, will begin approval for Cimzia Q 4 weeks subcutaneous injections. Patient advised of the side effects of the medication, including but not limited to increase risk of infection, rash, injection site reaction. Routine labs today. Follow-up 2 months. Sooner if needed. Assessment & Plan (01/30/2021 3:46 PM CDT): CDAI 9. Saliam stopped Otezla prior to last visit due to . She is currently 27 weeks without any complications. Overall, she has noted improvement in joint symptoms since her . She describes intermittent mild discomfort in the lower back/SI joints>hands/feet, which predominantly in the morning when present. Minimal swelling on exam. Doing fairly well on no active treatments. We did previously discuss Cimzia, which she had wanted to consider at last visit. As symptoms are doing well at this time, will maintain off medications and could reconsider these options if symptoms worsen. Follow-up 3 months. Sooner if needed. Assessment & Plan (10/25/2020 3:54 PM CDT): CDAI 9. She did stop Otezla after last visit, as she was trying to conceive and is currently 11 weeks . She had worsened joint complaints for about 4 weeks while trying to conceive, although symptoms have improved since becoming . At this time, she notes only minimal peripheral joint complaints. She has had some increased discomfort in the SI joints/lower back, which is worse in the morning and improves with activities. Will remain off Otezla at this time, as safety data is unknown during a /breast feeding and she would like to remain off medication during this time. Given her inflammatory sounding SI symptoms, did discuss possible use of Cimzia. Discussed safety data during /breast feeding. She would like to consider this option if symptoms worsen, although defers at this time. Recent CBC reviewed. Will obtain appropriate labs. Follow-up 3 months. Sooner if needed. Assessment & Plan (04/21/2020 10:35 AM MAGNET PLACER): CDAI 7. Has had improvement in joint symptoms since last visit. Minimal complaints at this time. Mild swelling in the right 2nd PIP joint without any other obvious synovitis on exam today. Recent repeat right hand/wrist ultrasound 03/2020 displayed moderate 2nd PIP and marked 3rd PIP synovial thickening without other significant findings. Overall, does appear fairly well controlled at this time. Will continue Otezla 30 mg b.i.d.. Routine labs today. Follow-up 3 months. Sooner if needed. Assessment & Plan (03/15/2020 12:53 PM CDT): CDAI 14. Patient has noted some persistent joint pain in the bilateral hands/feet, which are worse in the morning. No major benefit since beginning Otezla approximately 3 months prior. Tenderness across few joints with very minimal swelling. Symptoms have improved in the past week. Given the minimal swelling, do suspect that her significant joint hypermobility may be contributing to her symptoms. For this reason, would like to obtain a repeat right hand ultrasound to assess inflammation. Continue otezla 30 bid. Routine labs today. Follow-up 4 weeks. Sooner if needed. Seen with Dr. Benton. Depending on ultrasound findings, would consider addition of IL 17 vs aza medication. Assessment & Plan (01/12/2020 10:20 AM CDT): CDAI 11. Patient has begun the Otezla medication times 2 weeks with occasional GI upset which is tolerable, but otherwise denies any side effects. Continues to note some persistent joint pain in the hands, feet, which has improved slightly. A.m. stiffness for 40 minutes. Synovitis across few joints on exam. Would like to allow the Otezla medication more time to take effect. Will continue Otezla 30 mg b.i.d.. Routine labs today. Follow-up 2 months. Sooner if needed. Assessment & Plan (12/21/2019 11:21 AM CDT): CDAI 14. After last visit, patient was forced to stop Humira due to persistent elevated LFTs. Has noted persistent joint pain, stiffness in the bilateral hands, feet. Symptoms are much worse in the a.m. for 45 minutes. Will remain off Humira at this time due to persistent elevated LFTs. Will begin Otezla 30 mg b.i.d. after initial titration pack. Patient advised of the side effects of the medication, including but not limited to nausea, diarrhea, URTI, ONEILL, depression, and/or weight loss. Routine labs today. Follow-up 4 weeks. Sooner if needed. Seen with Dr. Benton. Assessment & Plan (11/10/2019 12:52 PM CDT): CDAI 14. Patient has begun Humira x6 weeks without any side effects. Denies significant change in symptoms. Continues to note persistent joint complaints, which do include the hands/feet. A.m. stiffness for 60 minutes. Synovitis with tenderness still present on exam. Not adequately controlled, although would like to give the Humira more time to take effect. Will continue Humira q.2 weeks subcutaneous injections. Routine labs today. Follow-up 2 months. Sooner if needed. If still doing poorly at next visit, would consider addition of otezla vs alternative biologic. Assessment & Plan (09/29/2019 10:14 AM CDT): CDAI 15. Patient has remained off sulfasalazine medication since last visit due to elevated LFTs. She has received her Humira medication, although has not begun the medication. Since stopping sulfasalazine, has noted progressively worsened joint symptoms, primarily involving the hands/feet. A.m. stiffness for 40 minutes. Synovitis with tenderness is noted on exam. Patient did give her 1st Humira injection in office today without issues and was monitored with no rash. Will continue with Humira Q 2 weeks subcutaneous injections. Routine labs today. Follow-up 6 weeks. Sooner if needed. Assessment & Plan (07/29/2019 10:04 AM MAGNET PLACER): CDAI 24. Since last visit, patient has experienced increased joint pain, which does include the bilateral hands, feet as well as the lower back/SI joints and neck. A.m. stiffness for 90 minutes. Synovitis is present on exam. Does not appear adequately controlled at this time. Would like to begin additional treatment with Humira Q 2 weeks subcutaneous injections. Patient advised of the side effects of the medication, including but not limited to increase risk of infection, rash, injection site reaction. Given handout discussing the medication. Will continue sulfasalazine 1000 mg b.i.d.. Routine labs today. Follow-up 6 weeks. Sooner if needed. Seen with Dr. Benton. Assessment & Plan (04/28/2019 1:22 PM MAGNET PLACER): CDAI 10. Since last visit, patient stop the Celebrex medication and increase sulfasalazine to 1000 mg b.i.d.. Since that time, patient has noted improvement in fatigue and joint symptoms, although has had some slight increased nausea. Patient does note the nausea is tolerable in improving and would not like to make any changes with the sulfasalazine medication. Overall, does appear fairly well controlled at this time. Will continue sulfasalazine 1000 mg b.i.d.. Routine labs today. Follow-up 2-3 months. Sooner if needed. If symptoms progress, could consider addition of azathioprine versus Humira, which had been discussed in the past. Assessment & Plan (03/25/2019 9:27 AM CDT): Moderate CDAI 16. Patient has begun the sulfasalazine medication with some improvement in joint pain, although did experience some nausea symptoms when 1st began. Patient does continue to note joint pain, stiffness in the bilateral feet (MTP joints), right elbow, si joints/lower back, and lesser degree in the bilateral hands. Significant a.m. Stiffness, which can take 1 hour to loosen up. Does possess synovitis across several joints of bilateral hands along with tenderness across several MTP joints. Given her prior negative serologies along with family history of mother with psoriasis and psoriatic arthritis, symptoms appear consistent with psoriatic arthritis diagnosis. Will further increase sulfasalazine to 1000 mg b.i.d.. Routine labs today, including recheck CBC and CMP in 2 weeks. Follow-up 4 weeks. Sooner if needed. Patient does note some persistent mild GERD symptoms with Celebrex in combination with Protonix 40 mg q.d.. For this reason, will have her taper celebrex to 1 tablet every other day and stop in the next week. If symptoms persist at next visit, would consider addition of Humira biweekly subcutaneous injections, which was discussed with patient some today. Assessment & Plan (02/23/2019 9:12 AM CDT): Moderate CDAI 21. Since last visit, patient has noted worsened joint symptoms, primarily involving the bilateral hands, feet, as well as right elbow. A.m. Stiffness for several hours. Symptoms do improve with activity. Does possess swelling with tenderness across several joints of bilateral hands. Given these worsened symptoms, would like to begin additional treatment with sulfasalazine 500 mg b.i.d.. Discussed the potential side effects of the medication, including but not limited to rash, blood count abnormalities, and upset stomach. Patient notes no plans for future pregnancies and is on control, although will defer methotrexate and leflunomide at this time due to childbearing age. Patient does have some slight acid reflux along with reduced appetite recently with Celebrex medication. For this reason, will increase pantoprazole to 40 mg q.d.. Patient was advised to monitor for acid reflux symptoms and notify us if this persists. Routine labs today, including recheck CBC and CMP in 2 weeks. Follow-up 4 weeks. Sooner if needed. If symptoms persist, would consider addition of biologic medication, such as Humira. Assessment & Plan (09/23/2018 3:34 PM CDT): Low CDAI. Patient has noted significant improvement in joint pain, stiffness, as well as significant fatigue symptoms since beginning the Celebrex medication. Very minimal joint pain and stiffness in the peripheral joints at this time. Mild synovitis and tenderness present on exam. It appears fairly well controlled at this time. Will continue Celebrex 200 mg q.d.. Routine labs today. Follow-up 3 months. Sooner if needed. If symptoms progressed, could consider increasing the Celebrex. Denies any side effects with the medication. Assessment & Plan (08/25/2018 4:22 PM CDT): Moderate CDAI. Patient was forced to stop Plaquenil medication since last visit due to confusion, dizziness, as well as vision changes, which have subsequently resolved. Has noted some persistent joint complaints, which are most notable in the bilateral hands, as well as the feet. A.m. Stiffness along with swelling seen in the left 3 through 5 digits in the morning, per patient report. Does note some facial flushing across the bilateral cheeks, which does spare the nasolabial fold (picture) along with acrocyanosis symptoms (picture), both of which are of unknown significance, although can be seen with certain connective tissue diseases. Most recent Avise panel displayed positive PS PT, although all other serologies were essentially negative, so do not see evidence to support CTD at this time. Will continue to monitor serologies and ultrasound findings. We will begin treatment with Celebrex 200 mg q.d. To see if this can offer some benefit. Discussed side effects of the medication, including but not limited to GI upset, kidney, and ulcers. Gerd is well controlled with pantoprazole. Patient was advised to notify of any GERD symptoms developed on Celebrex. Routine labs today. Follow-up 4 weeks. Sooner if needed. Seen with Dr. Benton. Assessment & Plan (08/05/2018 3:33 PM MAGNET PLACER): Patient does continue to have joint pains, which are most predominant in the left 1st MTP joint and lesser degree the remaining joints of the feet. Patient also notes joint pain and stiffness across several other joints including bilateral hands, knees, shoulders, as well as the elbows. A.m. Stiffness for approximately 60 min. Does take prednisone intermittently for asthma and did noted benefit with this in regards to joint symptoms. Do believe the patient does have a mild inflammatory arthritis contributing to her symptoms given the recent left foot ultrasound which did display effusions across several joints. For this reason , we will begin treatment with Plaquenil 200 mg q.d.. Risks of retinal toxicity were discussed with the patient. They are aware that they should get at least yearly eye exams, unless otherwise specified. Follow-up 4 weeks. Sooner if needed. Routine labs today, including avise. Assessment & Plan (07/03/2018 5:03 PM MAGNET PLACER): As above. Will recheck avise and Lt foot US to evaluate for inflammatory arthritis. Assessment & Plan (01/02/2018 1:42 PM CDT): Much improved with PT, as discussed above. Assessment & Plan (10/03/2017 3:39 PM CDT): Low positive lucy by lizz. Neg hep 2. US: moderate synovitis 3rd pip, but no other abnormal findings. Continues to have some sicca symptoms, questionable photosensitivity, and oral ulcers. No other clinical evidence of autoimmune disease or other connective tissue disease at this time. Based on recent radiographs, serologies, and hand US, it doesn't appear that patient's joint complaints are due to an autoimmune inflammatory process. Although given the low positive LUCY by Lizz, this may be a sign of an early developing inflammatory or connective tissue disease. For this reason, will continue to monitor for new symptoms. 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 Joint complaints have improved over the past two weeks with physical therapy. Will continue with physical therapy at this time. Fu in 3 months. Assessment & Plan (09/05/2017 5:06 PM CDT): Arthralgias with sicca and possible photosensitivity and oral ulcers. Will check serologies, xrays and US at this time. Pt may have increased jt pain due to her hypermobility. Hypermobile joint syndrome of multiple sites Overview (08/04/2018): Low positive lucy by lizz. Neg hep 2. US: moderate synovitis 3rd pip, but no other abnormal findings. Continues to have some sicca symptoms, questionable photosensitivity, and oral ulcers. No other clinical evidence of autoimmune disease or other connective tissue disease at this time. Based on recent radiographs, serologies, and hand US, it doesn't appear that patient's joint complaints are due to an autoimmune inflammatory process. Although given the low positive LUCY by Lizz, this may be a sign of an early developing inflammatory or connective tissue disease. For this reason, will continue to monitor for new symptoms. US R foot 07/27/2018: 1) Synovitis with effusions of the ankles, 2nd and 3rd MTP. These findings may be seen in with inflammatory arthritis and will have to be correlated clinically. Assessment & Plan (02/03/2025 10:20 AM CDT): Previously deferred PT. Previously recommended Voltaren gel. Continue joint protection. Assessment & Plan (10/25/2024 8:53 AM CDT): Previously deferred PT. Previously recommended Voltaren gel. Continue joint protection. Assessment & Plan (07/26/2024 9:11 AM MAGNET PLACER): Previously deferred PT. Previously recommended Voltaren gel. Continue joint protection. Joints continue to do very well at this time with minimal complaints. Assessment & Plan (05/03/2024 9:10 AM MAGNET PLACER): Previously deferred PT. Previously recommended Voltaren gel. Continue joint protection. Joints are doing very well this time with minimal complaints. Assessment & Plan (02/02/2024 10:10 AM CDT): Previously deferred PT. Previously recommended Voltaren gel. Continue joint protection. Assessment & Plan (10/27/2023 4:37 PM CDT): Previously deferred PT. Previously recommended Voltaren gel. Have discussed joint protection. Assessment & Plan (07/28/2023 4:28 PM MAGNET PLACER): Previously deferred PT. Previously recommended Voltaren gel. Have discussed joint protection. Minimal joint complaints today. Assessment & Plan (03/12/2023 3:54 PM CDT): Previously deferred PT. Previously recommended Voltaren gel. Have discussed joint protection. Minimal joint complaints today. Assessment & Plan (12/10/2022 3:53 PM CDT): Previously deferred PT. Previously recommended Voltaren gel. Have discussed joint protection. Assessment & Plan (09/09/2022 4:19 PM CDT): Previously deferred PT. Previously recommended Voltaren gel. Have discussed joint protection. Assessment & Plan (05/27/2022 10:23 AM MAGNET PLACER): Has significant joint hypermobility, which I suspect is contributing to some of her chronic joint complaints. Previously deferred PT. Previously recommended Voltaren gel. Continue joint protection. Assessment & Plan (02/22/2022 4:11 PM CDT): Has significant joint hypermobility, which I suspect is contributing to some of her chronic joint complaints. Previously deferred PT. Previously recommended Voltaren gel. Continue joint protection. Assessment & Plan (01/11/2022 3:14 PM CDT): Has significant joint hypermobility, which I suspect is contributing to some of her chronic joint complaints. Previously deferred PT. Previously recommended Voltaren gel. Continue joint protection. Assessment & Plan (11/08/2021 4:10 PM CDT): Has significant joint hypermobility, which I suspect is contributing to some of her chronic joint complaints. Defers PT at this time. Previously recommended Voltaren gel. Continue joint protection. Assessment & Plan (08/07/2021 9:14 AM MAGNET PLACER): Has significant joint hypermobility, which I suspect is contributing to some of her chronic joint complaints. He 7 bother in recently with ambulating stairs, which I suspect is more likely due to her hyper mobile joints. Recommended joint protection and discussed Voltaren gel to be applied to the affected knees p.r.n.. Assessment & Plan (07/06/2021 9:37 AM MAGNET PLACER): Significant joint hypermobility. Do suspect that this is contributing to some of her chronic joint complaints. Continue joint protection. Assessment & Plan (06/12/2021 12:32 PM MAGNET PLACER): Significant joint hypermobility. Do suspect that this is contributing to some of her chronic joint complaints. Continue joint protection. Assessment & Plan (04/17/2021 4:43 PM CDT): Significant joint hypermobility. Do suspect that this is contributing to some of her chronic joint complaints. Continue joint protection. Given her recent pre term child, she did mention obtaining genetic testing for EDS given the known risks premature her refer of the membrane in EDS. Unfortunately, there is no local genetic testing sites for this, which was discussed. If had children in the future, would need close monitoring with manager secondary. Assessment & Plan (01/30/2021 3:46 PM CDT): Significant joint hypermobility. Do suspect that this is contributing to some of her chronic joint complaints. Continue joint protection. Assessment & Plan (10/25/2020 3:55 PM CDT): Significant joint hypermobility. Do suspect that this is contributing to some of her chronic joint complaints. Continue joint protection. Assessment & Plan (04/21/2020 10:35 AM MAGNET PLACER): Significant joint hypermobility. Do suspect that this is contributing to some of her chronic joint complaints. Continue joint protection. Assessment & Plan (03/15/2020 12:52 PM CDT): Significant joint hypermobility. Do suspect that this is contributing to some of her chronic joint complaints. Continue joint protection. Assessment & Plan (01/12/2020 10:21 AM CDT): Significant joint hypermobility. Do suspect that this is contributing to some of her chronic joint complaints. Continue joint protection. Assessment & Plan (12/21/2019 11:21 AM CDT): Significant joint hypermobility. Do suspect that this is contributing to some of her chronic joint complaints. Continue joint protection. Assessment & Plan (11/10/2019 12:52 PM CDT): Significant joint hypermobility. Suspect this is contributing to her chronic joint complaints. Continue joint protection. Assessment & Plan (09/29/2019 10:14 AM CDT): Significant joint hypermobility. Suspect this is contributing to her chronic joint complaints. Continue joint protection. Assessment & Plan (07/29/2019 10:07 AM MAGNET PLACER): Significant joint hypermobility. Likely contributing to her joint complaints. Continue joint protection. Assessment & Plan (04/28/2019 1:23 PM MAGNET PLACER): Significant joint hypermobility. Likely contributing to her joint complaints. Continue joint protection. Assessment & Plan (03/25/2019 9:27 AM CDT): Significant joint hypermobility. Continue joint protection. Assessment & Plan (02/23/2019 9:13 AM CDT): Significant joint hypermobility. Again discussed joint protection. Assessment & Plan (09/23/2018 3:35 PM CDT): Significant hypermobility, which is likely contributing to the majority of her symptoms. Continue joint protection. Symptoms significantly improved with Celebrex. Assessment & Plan (08/25/2018 4:23 PM CDT): Significant hypermobility, which is likely contributing to the majority of her symptoms. Continue joint protection. Assessment & Plan (08/05/2018 3:34 PM MAGNET PLACER): Patient does continue to possess significant joint hypermobility and am suspicious this contributing to the majority of her symptoms. Continue joint protection. Assessment & Plan (07/03/2018 5:00 PM MAGNET PLACER): Joint symptoms did improve significantly with physical therapy, although patient completed her PT in December. Since that time, has had some worsened joint symptoms, primarily involving the bilateral knees, feet, as well as a lesser degree in the joints of the hands. A.m. Stiffness for 1-1.5 hours. Does continue to have significant joint hypermobility. No obvious peripheral joint synovitis. Am still less suspicious for inflammatory arthritis as a cause for her joint pains at this time, although does remain possible given her morning stiffness. Would like to further evaluate with left foot/ ankle ultrasound at this time , as well as recheck serologies including Avise panel. Patient does have significant joint hypermobility, which I believe is the cause for many of her issues. Is continuing to do PT exercises at home. Advised patient that can take OTC ibuprofen or tylenol to help with joint symptoms when bothersome. Fu 2 months. Sooner if needed. Seen with Dr. Benton. Assessment & Plan (01/02/2018 1:45 PM CDT): Joint complaints have improved significantly since beginning with PT. Denies any pain in the knees or the back at this time, as all improved notably with PT. Minimal complaints in the hands. Advised to continue with avoidance of joint hyperextension. Will continue to monitor for any new evidence for inflammatory arthritis contributing to her symptoms, although no evidence seen on exam or based on symptoms today. FU 6 months. Sooner if needed. 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 Discussed possibly seeing genetics at [facility]. Hypermobility increases risk for early OA and increased general pain. Discussed caution with stretches and trying to avoid hyperextension of the joints. Continue with physical therapy at this time. 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 Discussed potentially seeing genetics at [facility] but not urgent. Pt's with hypermobility have early osteoarthritis, and increase general pain/fibromyalgia. Cervical dysplasia 03/07/2017 Lichen sclerosus et atrophicus 10/16/2016 Resolved Problems Problem Noted Date Diagnosed Date Resolved Date Word finding difficulty 02/16/2019 0408/2020 Chronic low back pain 02/16/20192020 Assessment & Plan (07/29/2019 10:10 AM MAGNET PLACER): Suspect low back/neck symptoms more likely due to mechanical causes. Will send to PT. Numbness and tingling of foot 03/17/2018 09/26/2020 Fatigue 01/02/2018 09/26/2020 Assessment & Plan (08/05/2018 3:35 PM MAGNET PLACER): On CPAP machine. She will see if this improves with better Inflammation control. Is likely multifactorial. Assessment & Plan (01/02/2018 1:42 PM CDT): Notes worsened fatigue over the past couple of weeks. Has been using CPAP machine, which is helping some. Will continue with this. Check TSH today. Muscle cramping 01/02/2018 09/26/2020 Assessment & Plan (01/02/2018 1:43 PM CDT): Occasional episodes of muscle cramping with exertion. Will check electrolytes today. Amenorrhea 06/01/2014 09/27/2020 Dyspnea 09/26/2020 Assessment & Plan (01/12/2020 10:22 AM CDT): cxr 12/2019: WNL Stable dyspnea attributed to asthma. Follows up with pulmonology this week. Assessment & Plan (12/21/2019 11:23 AM CDT): Stable dyspnea attributed to her asthma following with pulm. Given her mother with pulmonary fibrosis and no cxr in >2 years, will obtain cxr. Encounters Date Type Department Care Team Description 02/04/2025 Results Follow-Up [facility] [address] [place] [phone] Orion Ortega MD Erythrocyte sedimentation rate, CRP (acute phase), Comprehensive metabolic panel, CBC with auto differential 02/03/2025 9:45 AM CDT Office Visit [facility] [address] [place] [phone] Shree Frederick PA Psoriatic arthritis (HCC) (Primary Dx); Hypermobile joint syndrome of multiple sites; Chronic pain of right knee; Encounter for long-term (current) use of medications 02/03/2025 Telephone [facility] [address] [place] [phone] Bryce Zapata from Last 3 Months Immunizations Immunization Administration Dates Next Due [employer] ([employer]) SARS-CoV-2 Vaccination 08/24/2020 MMR 03/11/2021(Deferred: No longer n eeded) Tdap 02/20/2021 Surgical History Surgery Date Site/Laterality Comments TONSILLECTOMY Medical History Medical History Date Comments GERD (gastroesophageal reflux disease) Sleep apnea Asthma Anxiety Depression High cholesterol Heart trouble Psoriatic arthritis (HCC) Hypermobility syndrome Family History Medical History Relation Name Comments Asthma Brother Hypertension Brother ADD / ADHD Father Atrial fibrillation Father Hypertension Father Prostate cancer Father's Brother Breast cancer Father's Sister COPD Mother Diabetes Mother Heart disease Mother Lung disease Mother Psoriasis Mother Pulmonary fibrosis Mother Heart attack Mother's Brother Stroke Mother's Brother Heart attack Mother's Sister Lupus Mother's Sister Uterine cancer Mother's Sister ADD / ADHD Sister Dermatomyositis Sister Relation Name Status Comments Brother Father Father's Brother Father's Sister Mother Mother's Brother Mother's Sister Sister Social History Tobacco Use Types Packs/Day Years Used Date Smoking Tobacco: Never Smokeless Tobacco: Never Alcohol Use Standard Drinks/Week Comments Yes 0 (1 standard drink = 0.6 oz pur e alcohol) rarely AUDIT-C Answer Date Recorded Q1: How often do you have a drink containing alc ohol? Never 10/02/2020 Average Number of Drinks Not on file 021 Q3: How often do you have si x or more drinks on one occasion? Never 10/02/2020 Exercise Vital Sign Answer Date Recorde d On average, how many days pe r week do you engage in moderate to strenuous exercise (like a brisk walk)? 2 days 02/15/2020 On average, how many minutes do you engage in exercise at this level? 30 min 02/15/2020 [place] Depression Scale Answer Date Recorded [place] Depression Scale Total 16 04/19/2021 The thought of harming myself has occurred to me . Hardly ever 04/19/2021 Comments Unknown Sex and Gender Information Value Date Recorded Sex Assigned at Not on file Legal Sex Female 11:16 AM [employer] Gender Identity Female 01/22/2021 1:07 PM CDT Sexual Orientation Straight 01/22/2021 1: 07 PM CDT Obstetrics History Para Term AB IAB SAB Ectopic Multiple Livin g Live Births 1 1 0 1 0 0 0 0 0 1 1 Date Outcome GA Total Labor Labor/2nd/3rd Weight Sex Type Anes PTL Carmen A1 A5 Name Clin 2020 31w 0d 1h 04m 0h 51m/0h 13m 1.6 kg (3 lb 8.4 oz) M Vag-S pont Epidur al Y Livin g 7 8 MYCHAL YOUNG, Martha Sumner MD Complications:None Delivery Location:[facility] ([facility]) Comments:due to billingsley hour unable to get length Comments [id number] TBA-31.0 wks weeks presented to [facility] with PROM (1) AMA, (2) ADHD on no meds, (3) h/o HSV. baby boy- crying immediately afterwards and to NICU. Baby doing well on CPAP in NICU. Last Filed Vital Signs Vital Sign Reading Time Taken Comments Blood Pressure 120/90 02/03/2025 9:46 AM CDT Pulse 82 02/03/2025 9:46 AM CDT Temperature 36.8 C (98.3 F) 08/07/2021 8:29 AM [employer] Respiratory Rate 18 03/10/2021 11:00 PM CDT Oxygen Saturation 98% 02/03/2025 9:46 AM CDT Inhaled Oxygen Concentration - - Weight 77.2 kg (170 lb 3.2 oz) 02/03/2025 9:46 A M CDT Height 170.2 cm (5' 7) 02/03/2025 9:46 AM CDT Body Mass Index 26.66 02/03/2025 9:46 AM CDT Plan of Treatment Health Maintenance Due Date Last Done Comments Breast Cancer Screening-Mammogram 1984 Cervical Cancer Screening 1984 Varicella Vaccines (1 of 2 - 13+ 2-dose series) 1997 Hepatitis B Screening 2002 Pneumococcal vaccine <65 (1 of 2 - PCV) 11/15/2003 HPV Vaccines (1 - 3-dose SCD M series) 11/15/2011 Regular Well Visit/Exam 18-64 02/14/2021 02/15/2020, 07/28/2018 Depression Screening 04/19/2022 04/19/2021 Covid-19 Vaccine (3 - 2024-2 6 season) 2025 05/15/2021, 08/24/2020 Influenza Vaccine (#1) 2025 3, 03/05/2022, 03/11/2020, Additional history exists DTaP/Tdap/Td Vaccine (2 - Td or Tdap) 02/20/2031 02/20/2021 Hepatitis C Screening Completed 03/01/2021, 020 Procedures Procedure Name Priority Date/Time Associated Diagnosis Comments CBC WITH AUTO DIFFERENTIAL Routine 02/03/2025 10:24 AM CDT Psoriatic arthritis (HCC) Encounter for long-term (current) use of medications COMPREHENSIVE METABOLIC PANEL Routine 02/03/2025 10:24 AM CDT Psoriatic arthritis (HCC) Encounter for long-term (current) use of medications CRP (ACUTE PHASE) Routine 02/03/2025 10: 24 AM CDT Psoriatic arthritis (HCC) Encounter for long-term (current) use of medications ERYTHROCYTE SEDIMENTATION RATE Routine 02/03/2025 10:24 AM CDT Psoriatic arthritis (HCC) Encounter for long-term (current) use of medications HEPATITIS C ANTIBODY Routine 03/01/2021 5:44 AM CDT from Last 3 Months or Most Recently Relevant to Health Maintenance Results * (ABNORMAL) CBC with auto differential (02/03/2025 10:24 AM CDT) WBC 8.3 3.8 - 10.8 Thousand/u L [facility] RBC, POC 4.51 3.80 - 5.10 Million/uL [facility] Hgb 13.8 11.7 - 15.5 g/dL [facility] Hct 42.5 35.0 - 45.0 % [facility] MCV 94.2 80.0 - 100.0 fL [facility] MCH 30.6 27.0 - 33.0 pg [facility] MCHC 32.5 32.0 - 36.0 g/dL [facility] Comment: For adults, a slight decrease in the calculated MCHC value (in the range of 30 to 32 g/dL) is most likely not clinically significant; however, it should be interpreted with caution in correlation with other red cell parameters and the patient's clinical condition. Rdw 12.6 11.0 - 15.0 % [facility] Platelets 560(H) 140 - 400 Thousand/u L [facility] MPV 9.8 7.5 - 12.5 fL [facility] Neutrophils, abs 3,586 1,500 - 7,800 cells/uL [facility] Lymphocytes, abs 3,718 850 - 3,900 cells/uL [facility] Monocyte abs 830 200 - 950 cells/uL [facility] Eosinophils, abs 133 15 - 500 cells/uL [facility] Basophils, abs 33 0 - 200 cells/uL [facility] Neutrophils 43.2 % [facility] Lymphocyte pct 44.8 % [facility] Monocytes 10.0 % [facility] Eosinophils 1.6 % [facility] Basophils 0.4 % [facility] Blood 02/03/2025 10:2 4 AM CDT 02/03/2025 10:24 AM CDT Shree HENDRIX LAB BLOOD ORDERABLES Fi nal Result Performing Organization Address [facility] de Phone Number QUEST [facility] [address] [place] [address] * Erythrocyte sedimentation rate (02/03/2025 10:24 AM CDT) Erythrocyte sedimentation rate 17 < OR = 20 mm/h [facility] Blood 02/03/2025 10:2 4 AM CDT 02/03/2025 10:24 AM CDT Shree HENDRIX LAB BLOOD ORDERABLES Fi nal Result Performing Organization Address [facility] de Phone Number QUEST [facility] [address] [place] [address] * CRP (acute phase) (02/03/2025 10:24 AM CDT) C-RP <3.0 <8.0 mg/L [facility] Blood 02/03/2025 10:2 4 AM CDT 02/03/2025 10:24 AM CDT Shree HENDRIX LAB BLOOD ORDERABLES Fi nal Result Performing Organization Address City/[facility] de Phone Number QUEST [facility] [address] [place] [phone] * (ABNORMAL) Comprehensive metabolic panel (02/03/2025 10:24 AM CDT) Glucose 97 65 - 99 mg/dL [facility] Comment: Fasting reference interval BUN 10 7 - 25 mg/dL [facility] Creatinine 0.65 0.50 - 0.99 mg/dL [facility] eGFR 114 > OR = 60 mL/min/1.7 3m2 [facility] BUN/creat ratio SEE NOTE: 6 - 22 (calc) [facility] Comment: Not Reported: BUN and Creatinine are within reference range. Sodium 136 135 - 146 mmol/L [facility] Potassium, pl 4.4 3.5 - 5.3 mmol/L [facility] Chloride 103 98 - 110 mmol/L [facility] CO2 26 20 - 32 mmol/L [facility] Calcium 10.6(H) 8.6 - 10.2 mg/dL [facility] Protein, sr 7.5 6.1 - 8.1 g/dL [facility] Albumin 4.3 3.6 - 5.1 g/dL [facility] GLOBULIN 3.2 1.9 - 3.7 g/dL (calc) [facility] Alb/glob ratio 1.3 1.0 - 2.5 (calc) [facility] Bilirubin, total 0.4 0.2 - 1.2 mg/dL [facility] Alk phos 53 31 - 125 U/L [facility] AST 16 10 - 30 U/L [facility] ALT (SGPT) 13 6 - 29 U/L [facility] Blood 02/03/2025 10:2 4 AM CDT 02/03/2025 10:24 AM CDT Shree HENDRIX LAB BLOOD ORDERABLES Fi nal Result [facility] [address] [place] [phone] * Hepatitis C antibody (03/01/2021 5:44 AM CDT) Hep C Ab Nonreactive Nonreactive [facility] Comment:Antibodies to HCV no t detected. Does NOT exclude the possibility of recent exposure to HCV. Blood 03/01/2021 5:44 AM CDT 03/01/2021 6:52 AM CDT us Perfecto Bhat MD LAB MICROBIOLOGY - GENERAL ORDERABLES Edited Result - Final [facility] Department [place] [address] from Last 3 Months or Most Recently Relevant to Health Maintenance Insurance [facility] CHOICE PLUS [employer] ACCESS CHOICE Advance Directives For more information, please contact: [phone] * Full Code (Latest Code Status on File) Date Activated Date Inactivated Comments 03/09/2021 12:19 PM 03/11/2021 6:06 PM * Full Code Date Activated Date Inactivated Comments 02/28/2021 4:02 PM 03/09/2021 12:19 PM Care Teams [employer] Operator Relationship Specialty Start Date End Date Rc Diamond MD [address] [place] [address] PCP - General Family Practice 05/03/24 Orion Ortega MD [address] [place] [address] Consulting Physician Rheumatology 10/27/23
== END 2025-04-20 14:49 | disposition home or self-care (01) ==
PROVIDERS: PCP Family Medicine; Visit Provider Family Medicine
DX: Z12.31 Encounter for screening mammogram for malignant neoplasm of breast (principal)
CPT/HCPCS: 77063; 77067